=== PATIENT | female | born 1995 | race African-American/Black ===

== ENCOUNTER 2024-02-26 05:50 | Emergency (ER) | payer OTHER ==
[2024-02-26 05:57] VITALS: BMI 21.6
[2024-02-26 06:53] LABS: BASO % 0.9 % (0-2.0); EOS % 0.3 % (0-4.5); HEMOGLOBIN 11.7 GM/dL (10.7-15.3); LYMPH % 21.8 % (8-40); MCH 26.8 pg (25.7-33.7); MCHC 31.7 g/dl (32.0-36.0); MEAN CELL VOLUME 84.7 fl (80-96); MEAN PLT VOLUME 7.1 fl (7.5-11.1); MONO % 5.6 % (3.8-10.2); NEUT % 71.4 % (42.8-82.8); PLATELET COUNT 381 10^3/uL (134-434); RBC 4.37 M/mm3 (3.60-5.2); RDW 15.7 % (11.6-15.6); WHITE BLOOD COUNT 9.3 K/mm3 (4.0-10.0)
[2024-02-26 07:05] LABS: ACTIVATED PTT 26.2 SECONDS (25.2-36.5)
[2024-02-26 07:19] LABS: POTASSIUM 3.8 mmol/L (3.5-5.1)
[2024-02-26 07:21] LABS: ALBUMIN 2.6 g/dl (3.4-5.0); CALCIUM 8.5 mg/dL (8.5-10.1)
[2024-02-26 07:22] LABS: BLOOD UREA NITROGEN 10.9 mg/dL (7-18)
[2024-02-26] MEDS: ASPIRIN 325 MG TABLET PO ONE (07:25)
[2024-02-26 07:26] LABS: BILIRUBIN,TOTAL 0.3 mg/dL (0.2-1); TOT PROT 6.8 g/dl (6.4-8.2)
[2024-02-26 07:27] VITALS: BP 132/80; PULSE 72; RESP 16; TEMP 98.4
[2024-02-26 07:38] LABS: INR 1.12 (0.83-1.09)
== END 2024-02-26 07:28 | disposition short-term general hospital (02) ==
LOC: JER 05:50
DX: I21.3 ST elevation (STEMI) myocardial infarction of unspecified site (principal); R11.0 Nausea; Z20.822 Contact with and (suspected) exposure to COVID-19
CPT/HCPCS: 0241U-QW; 36415; 80053; 84484; 85025; 85610; 85730; 86593; 86780; 86850; 86900; 86901; 93005; 93010; 99285-25

== ENCOUNTER 2024-07-10 16:11 | Inpatient (IN) | payer OTHER ==
[2024-07-10 17:36] VITALS: BMI 21.8
[2024-07-10] MEDS ORDERED: LOPERAMIDE HCL 2 MG CAPSULE PO PRN (18:32)
[2024-07-10] MEDS ORDERED: NALOXONE HCL 0.4 MG/ML VIAL IM PRN (18:32)
[2024-07-10] MEDS ORDERED: BISMUTH SUBSALICYLATE 524 MG/30 ML PO PRN (18:32)
[2024-07-10] MEDS ORDERED: BENZOCAINE/MENTHOL (CHLORASEPTIC ) LOZENGE MM PRN (18:32)
[2024-07-10] MEDS ORDERED: BENZONATATE 200 MG CAPSULE PO PRN (18:32)
[2024-07-10] MEDS ORDERED: guaiFENesin 600 MG TABLET.ER (FP) PO PRN (18:32)
[2024-07-10] MEDS ORDERED: NICOTINE POLACRILEX 2 MG LOZENGE BC PRN (18:32)
[2024-07-10] MEDS ORDERED: MAGNESIUM HYDROX 2400MG/30ML ORAL SUSPENSION 30 ML CUP PO PRN (18:32)
[2024-07-10] MEDS ORDERED: IBUPROFEN 400 MG TABLET (FP) PO PRN (18:32)
[2024-07-10] MEDS ORDERED: MAG HYDROX/AL HYDROX/SIMETH 30 ML UNIT-DOSE CUP PO PRN (18:32)
[2024-07-10] MEDS ORDERED: P-EPHED 60MG/TRIPROLIDI 2.5MG TABLET PO PRN (18:32)
[2024-07-10] MEDS ORDERED: NALOXONE (NARCAN) HCL 4 MG/0.1 ML SPRAY NS PRN (18:32)
[2024-07-10] MEDS ORDERED: NICOTINE POLACRILEX 2 MG GUM BUC PRN (18:32)
[2024-07-10] MEDS ORDERED: POLYETHYLENE GLYCOL (HEALTHYLAX) 3350 17 GM PACKET PO PRN (18:32)
[2024-07-10] MEDS: THIAMINE 100 MG TABLET PO SCH (22:34)
[2024-07-10] MEDS: MELATONIN 5 MG TABLETS PO SCH (22:34)
[2024-07-11] MEDS: ONDANSETRON *ODT* 4 MG TABLET SL PRN (02:57)
[2024-07-11] MEDS: TRIMETHOBENZAMIDE HCL 200MG/2ML INJ IM ONE ×3 (03:34→12:20)
[2024-07-11] MEDS: methaDONE HCL 10 MG TABLET PO ONE (08:29)
[2024-07-11] MEDS ORDERED: methaDONE HCL 10 MG TABLET PO PRN (09:56)
[2024-07-11] MEDS: cloNIDine HCL 0.1 MG TABLET PO SCH (10:33)
[2024-07-11] MEDS: ASPIRIN COATED 81 MG TABLET.EC PO SCH (10:33)
[2024-07-11] MEDS: PRENATAL VITAMINS W/ FOLIC ACID TABLET (FP) PO SCH (10:34)
[2024-07-11 12:57] LABS: POTASSIUM 4.3 mmol/L (3.5-5.1)
[2024-07-11 12:59] LABS: ALBUMIN 3.2 g/dl (3.4-5.0); BLOOD UREA NITROGEN 13.2 mg/dL (7-18); CALCIUM 8.9 mg/dL (8.5-10.1)
[2024-07-11 13:03] LABS: CREATININE 0.8 mg/dL (0.55-1.3)
[2024-07-11 13:04] LABS: BILIRUBIN,TOTAL 0.7 mg/dL (0.2-1); TOT PROT 8.4 g/dl (6.4-8.2)
[2024-07-11] MEDS: IBUPROFEN 600 MG TABLET (FP) PO PRN (17:33)
[2024-07-11] MEDS: hydrOXYzine PAMOATE 25 MG CAPSULE (FP) PO PRN (17:33)
[2024-07-11] MEDS: METHOCARBAMOL 500 MG TABLET PO PRN (17:33)
[2024-07-11] MEDS: DICYCLOMINE HCL 10 MG CAPSULE PO PRN (19:39)
[2024-07-11] MEDS: ACETAMINOPHEN 325 MG TABLET (FP) PO PRN (20:55)
[2024-07-12 00:24] LABS: EPI CELLS >36 /uL (0-25.1); HYALINE CASTS 9 /uL (0-3.1); PH,URINE 6.5 (5.0-8.0); URINE APPEARANCE TURBID; URINE BACTERIA 1596 /uL (0-1359); URINE BILIRUBIN 1+ (NEGATIVE); URINE COLOR ORANGE; URINE GLUCOSE (UA) NEGATIVE (NEGATIVE); URINE KETONE TRACE (NEGATIVE); URINE LEUK ESTERASE TRACE (NEGATIVE); URINE NITRITE NEGATIVE (NEGATIVE); URINE PROTEIN 1+ (NEGATIVE); URINE RBC 4 /uL (0-23.9); URINE WBC 26 /uL (0-25.8)
[2024-07-12] MEDS: methaDONE 40 MG, methaDONE 10 MG PO ONE (10:07)
[2024-07-12] MEDS: SULFAMETHOXAZOLE/TRIMETHOPRIM 800MG/160MG D.S. TABLET PO SCH (12:58)
[2024-07-12] MEDS: BUPRENORPHINE/NALOXONE 4 MG/1 MG FILM PACKET SL SCH (14:40)
[2024-07-12 18:44] VITALS: RESP 16
[2024-07-13] MEDS ORDERED: cloNIDine HCL 0.1 MG TABLET PO PRN
[2024-07-13] MEDS: BUPRENORPHINE/NALOXONE 8 MG/2 MG FILM PACKET SL ONE (05:28)
[2024-07-13 09:29] LABS: BILIRUBIN,DIRECT 0.3 mg/dL (0.0-0.2); BILIRUBIN,TOTAL 1.4 mg/dL (0.2-1); TOT PROT 7.8 g/dl (6.4-8.2)
[2024-07-13] MEDS ORDERED: methaDONE 40 MG, methaDONE 20 MG PO ONE (10:00)
[2024-07-13 12:16] VITALS: BP 112/71; PULSE 53; TEMP 97
[2024-07-14] MEDS ORDERED: methaDONE 40 MG, methaDONE 30 MG PO ONE (10:00)
[2024-07-15] MEDS ORDERED: methaDONE HCL 40 MG DISPERSABLE TABLET PO ONE (10:00)
[2024-07-16] MEDS ORDERED: methaDONE 80 MG, methaDONE 10 MG PO ONE (10:00)
== END 2024-07-13 15:39 | disposition left against medical advice (07) | DRG 770 ==
LOC: YASAS 16:11 → Y6N 19:20
PROVIDERS: ADMIT Allergy & Immunology; ATTEND Psychiatry & Neurology Pain Medicine
PROC: HZ2ZZZZ Detoxification Services for Substance Abuse Treatment (ICD-10-PCS; principal; 2024-07-10)
DX: F11.23 Opioid dependence with withdrawal (principal); F14.20 Cocaine dependence, uncomplicated; F17.210 Nicotine dependence, cigarettes, uncomplicated; F64.0 Transsexualism; N39.0 Urinary tract infection, site not specified; R11.2 Nausea with vomiting, unspecified
CPT/HCPCS: 0241U-QW; 36415; 80053; 80076; 80305; 80307; 81003; 86593; 86708; 86780; 93005; 93010; Q0162

== ENCOUNTER 2024-07-12 01:16 | Emergency (ER) | payer OTHER ==
[2024-07-12] MEDS: SODIUM CHLORIDE 1,000 ML IV STA (02:39)
[2024-07-12] MEDS ORDERED: FAMOTIDINE 20 MG/50 ML IVPB 20 MG/50 ML MG IVPB ONE (02:42)
[2024-07-12 02:46] LABS: BASO % 0.5 % (0-2.0); HEMATOCRIT 37.8 % (32.4-45.2); HEMOGLOBIN 12.4 GM/dL (10.7-15.3); LYMPH % 17.8 % (8-40); MCH 26.9 pg (25.7-33.7); MCHC 32.9 g/dl (32.0-36.0); MEAN CELL VOLUME 81.9 fl (80-96); MEAN PLT VOLUME 8.1 fl (7.5-11.1); MONO % 3.6 % (3.8-10.2); NEUT % 78.1 % (42.8-82.8); PLATELET COUNT 497 10^3/uL (134-434); RBC 4.62 M/mm3 (3.60-5.2); WHITE BLOOD COUNT 15.3 K/mm3 (4.0-10.0)
[2024-07-12] MEDS: FAMOTIDINE 20 MG/50 ML IVPB 20 MG/50 ML MG IVPB ONE (02:50)
[2024-07-12 03:25] LABS: POTASSIUM 3.9 mmol/L (3.5-5.1)
[2024-07-12 03:27] LABS: ALBUMIN 3.2 g/dl (3.4-5.0); BLOOD UREA NITROGEN 13.7 mg/dL (7-18); CALCIUM 9.2 mg/dL (8.5-10.1)
[2024-07-12 03:31] LABS: CREATININE 0.8 mg/dL (0.55-1.3)
[2024-07-12 03:33] LABS: BILIRUBIN,TOTAL 0.9 mg/dL (0.2-1); TOT PROT 8.7 g/dl (6.4-8.2)
[2024-07-12] MEDS ORDERED: PIPERACILLIN/TAZOB 3.375 GM 3.375 GM/50 ML BAG IVPB ONE (05:01)
[2024-07-12] MEDS ORDERED: ACETAMINOPHEN INJECTION 100 ML ONE (05:01)
[2024-07-12] MEDS: PIPERACILLIN/TAZOB 3.375 GM 3.375 GM in DEXTROSE 5%-WATER - 50 ML IVPB ONE (05:04)
[2024-07-12] MEDS ORDERED: IBUPROFEN 800 MG/8 ML IJ IVPB ONE (05:20)
[2024-07-12] MEDS: IBUPROFEN 800 MG/8 ML IJ IVPB ONE (05:23)
[2024-07-12 06:39] VITALS: RESP 16
[2024-07-12] MEDS ORDERED: BUPRENORPHINE/NALOXONE 2 MG/0.5 MG FILM PACKET ONE (07:55)
[2024-07-12] MEDS: BUPRENORPHINE/NALOXONE 4 MG/1 MG FILM PACKET SL ONE (07:59)
[2024-07-12] MEDS ORDERED: ONDANSETRON 4 MG/2 ML VIAL ONE (08:26)
[2024-07-12] MEDS: ONDANSETRON 4 MG/2 ML VIAL IVPUSH ONE (08:31)
[2024-07-12 08:59] LABS: EPI CELLS >36 /uL (0-25.1); HYALINE CASTS 5 /uL (0-3.1); PH,URINE 6.5 (5.0-8.0); URINE APPEARANCE CLEAR; URINE BACTERIA 70 /uL (0-1359); URINE BILIRUBIN NEGATIVE (NEGATIVE); URINE COLOR YELLOW; URINE GLUCOSE (UA) NEGATIVE (NEGATIVE); URINE KETONE TRACE (NEGATIVE); URINE LEUK ESTERASE NEGATIVE (NEGATIVE); URINE NITRITE NEGATIVE (NEGATIVE); URINE PROTEIN 1+ (NEGATIVE); URINE RBC 7 /uL (0-23.9); URINE WBC 31 /uL (0-25.8)
[2024-07-12 10:12] VITALS: BP 107/64; PULSE 68; TEMP 98.7
== END 2024-07-12 10:38 | disposition home or self-care (01) ==
LOC: JER 01:16
PROC: 3E033GC Introduction of Other Therapeutic Substance into Peripheral Vein, Percutaneous Approach (ICD-10-PCS; principal; 2024-07-12)
PROC: 3E03329 Introduction of Other Anti-infective into Peripheral Vein, Percutaneous Approach (ICD-10-PCS; 2024-07-12)
PROC: 3E033NZ Introduction of Analgesics, Hypnotics, Sedatives into Peripheral Vein, Percutaneous Approach (ICD-10-PCS; 2024-07-12)
PROC: 3E033GC Introduction of Other Therapeutic Substance into Peripheral Vein, Percutaneous Approach (ICD-10-PCS; 2024-07-12)
DX: F11.93 Opioid use, unspecified with withdrawal (principal); R50.9 Fever, unspecified; R10.11 Right upper quadrant pain; R10.31 Right lower quadrant pain; Z20.822 Contact with and (suspected) exposure to COVID-19
CPT/HCPCS: 0241U-QW; 36415; 74177-TC; 76705-TC; 80053; 81003; 83690; 85025; 87086; 87635; 93005; 93010; 99285-25; Q9967